=== PATIENT | female | born 1950 | race Caucasian/White ===

== ENCOUNTER 2022-03-25 08:46 | Outpatient (REF) | payer MEDICARE, SELFPAY ==
[2022-03-25 11:03] LABS: MANUAL DIFF FLAG NO
[2022-03-25 11:08] LABS: Basophils Percent Auto 0.6 % (0-2); Eosinophils Absolute Auto 0.1 X10*3/uL (0.0-0.4); Eosinophils Percent Auto 1.9 % (0-4); Hematocrit 42.1 % (37.0-47.0); Imm Gran Abs Auto 0.01 X10*3/uL (0.00-0.03); Imm Gran Pct Auto 0.2 % (0.0-0.4); Lymphocytes Absolute Auto 2.3 X10*3/uL (1.2-4.9); Lymphocytes Percent Auto 36.6 % (20-40); Mean Corpuscular HGB Conc 33.3 g/dl (31.0-35.0); Mean Corpuscular Hemoglobin 29.5 pg (27.0-33.0); Mean Corpuscular Volume 88.8 fL (80.0-98.0); Mean Platelet Volume 9.9 fL (9.4-12.3); Monocytes Absolute Auto 0.6 X10*3/uL (0.1-1.2); Monocytes Percent Auto 9.7 % (2-11); Neutrophils Absolute Auto 3.3 x10*3/uL (2.0-8.3); Platelet Count 263 X10*3/uL (160-400); Red Blood Count 4.74 X10*6/uL (4.20-5.50); White Blood Count 6.4 X10*3/uL (4.8-10.8)
[2022-03-25 11:42] LABS: Alanine Aminotransferase 11 U/L (0-31); Albumin Level 4.4 g/dL (3.5-5.0); Alkaline Phosphatase 66 U/L (39-117); Anion Gap 15 (12-20); Aspartate Amino Transferase 14 U/L (5-31); Bilirubin Total 0.6 mg/dL (0.0-1.0); Blood Urea Nitrogen 13 mg/dL (9-16); Calcium 9.3 mg/dL (8.4-10.2); Carbon Dioxide 29 mmol/L (22-29); Chloride 106 mmol/L (96-108); Cholesterol 221 mg/dL; Estimated Glomerular Filt Rate > 60; Glucose Random 96 mg/dL (60-115); HDL Cholesterol 75 mg/dL; LDL Cholesterol Calculated 131 mg/dl; Potassium 5.6 mmol/L (3.3-5.1); Sodium 144 mmol/L (135-145); Total Protein 7.2 g/dL (6.5-8.0); Triglycerides 77 mg/dL
[2022-03-25 12:04] LABS: Vitamin D 25-OH Total 36.4 ng/mL (>30)
== END 2022-03-25 08:47 | disposition home or self-care (01) ==
LOC: HO.MANLDS 08:46
PROVIDERS: Visit Provider Internal Medicine
DX: E78.00 Pure hypercholesterolemia, unspecified (principal)
CPT/HCPCS: 36415; 80053; 80061; 82306; 85025

== ENCOUNTER 2023-04-27 08:27 | Outpatient (REF) | payer MEDICARE, SELFPAY ==
[2023-04-27 13:15] LABS: MANUAL DIFF FLAG NO
[2023-04-27 13:41] LABS: Basophils Absolute Auto 0.1 X10*3/uL (0.0-0.2); Basophils Percent Auto 1.1 % (0-2); Eosinophils Absolute Auto 0.2 X10*3/uL (0.0-0.4); Eosinophils Percent Auto 2.4 % (0-4); Hematocrit 43.7 % (37.0-47.0); Hemoglobin 14.3 g/dl (12.0-16.0); Imm Gran Abs Auto 0.02 X10*3/uL (0.00-0.03); Imm Gran Pct Auto 0.3 % (0.0-0.4); Lymphocytes Absolute Auto 2.4 X10*3/uL (1.2-4.9); Lymphocytes Percent Auto 38.1 % (20-40); Mean Corpuscular HGB Conc 32.7 g/dl (31.0-35.0); Mean Corpuscular Volume 88.6 fL (80.0-98.0); Mean Platelet Volume 10.2 fL (9.4-12.3); Monocytes Absolute Auto 0.7 X10*3/uL (0.1-1.2); Monocytes Percent Auto 10.4 % (2-11); Neutrophils Percent Auto 47.7 % (45-73); Platelet Count 254 X10*3/uL (160-400); Red Blood Count 4.93 X10*6/uL (4.20-5.50); Red Cell Distribution Width 12.2 % (11.0-16.0); White Blood Count 6.3 X10*3/uL (4.8-10.8)
[2023-04-27 14:17] LABS: Alanine Aminotransferase 13 U/L (0-31); Albumin Level 4.3 g/dL (3.5-5.0); Alkaline Phosphatase 65 U/L (39-117); Anion Gap 13 (12-20); Aspartate Amino Transferase 16 U/L (5-31); Bilirubin Total 0.8 mg/dL (0.0-1.0); Blood Urea Nitrogen 11 mg/dL (9-16); Calcium 9.7 mg/dL (8.4-10.2); Carbon Dioxide 28 mmol/L (22-29); Chloride 105 mmol/L (96-108); Cholesterol 209 mg/dL (<200); Estimated Glomerular Filt Rate > 60; Glucose Random 91 mg/dL (60-115); HDL Cholesterol 66 mg/dL (>40); LDL Cholesterol Calculated 124 mg/dL (<100); Potassium 4.9 mmol/L (3.3-5.1); Sodium 141 mmol/L (135-145); Total Protein 7.5 g/dL (6.5-8.0); Triglycerides 99 mg/dL (<150)
[2023-04-27 14:37] LABS: Vitamin D 25-OH Total 47.2 ng/mL (>30)
== END 2023-04-27 08:28 | disposition home or self-care (01) ==
LOC: HO.MANLDS 08:27
PROVIDERS: Visit Provider Internal Medicine
DX: E78.00 Pure hypercholesterolemia, unspecified (principal)
CPT/HCPCS: 36415; 80053; 80061; 82306; 85025

== ENCOUNTER 2024-05-30 08:24 | Outpatient (REF) | payer MEDICARE, SELFPAY ==
[2024-05-30 13:11] LABS: MANUAL DIFF FLAG NO
[2024-05-30 13:37] LABS: Basophils Absolute Auto 0.1 X10*3/uL (0.0-0.2); Eosinophils Absolute Auto 0.1 X10*3/uL (0.0-0.4); Eosinophils Percent Auto 2.1 % (0-4); Hemoglobin 13.2 g/dl (12.0-16.0); Imm Gran Abs Auto 0.01 X10*3/uL (0.00-0.03); Imm Gran Pct Auto 0.2 % (0.0-0.4); Lymphocytes Absolute Auto 2.1 X10*3/uL (1.2-4.9); Lymphocytes Percent Auto 39.7 % (20-40); Mean Corpuscular HGB Conc 33.8 g/dl (31.0-35.0); Mean Corpuscular Hemoglobin 29.9 pg (27.0-33.0); Mean Corpuscular Volume 88.4 fL (80.0-98.0); Mean Platelet Volume 9.9 fL (9.4-12.3); Monocytes Absolute Auto 0.5 X10*3/uL (0.1-1.2); Monocytes Percent Auto 9.8 % (2-11); Neutrophils Absolute Auto 2.5 x10*3/uL (2.0-8.3); Neutrophils Percent Auto 47.2 % (45-73); Platelet Count 253 X10*3/uL (160-400); Red Blood Count 4.41 X10*6/uL (4.20-5.50); Red Cell Distribution Width 11.9 % (11.0-16.0); White Blood Count 5.2 X10*3/uL (4.8-10.8)
[2024-05-30 19:35] LABS: Alanine Aminotransferase 25 U/L (0-31); Albumin Level 4.2 g/dL (3.5-5.0); Alkaline Phosphatase 64 U/L (39-117); Anion Gap 11 (12-20); Aspartate Amino Transferase 31 U/L (5-31); Bilirubin Total 0.8 mg/dL (0.0-1.0); Blood Urea Nitrogen 12 mg/dL (9-16); Calcium 9.6 mg/dL (8.4-10.2); Carbon Dioxide 27 mmol/L (22-29); Chloride 108 mmol/L (96-108); Cholesterol 196 mg/dL (<200); Estimated Glomerular Filt Rate > 60; Glucose Random 89 mg/dL (60-115); HDL Cholesterol 72 mg/dL (>40); LDL Cholesterol Calculated 111 mg/dL (<100); Potassium 3.9 mmol/L (3.3-5.1); Sodium 142 mmol/L (135-145); Triglycerides 69 mg/dL (<150)
[2024-05-30 19:52] LABS: Vitamin D 25-OH Total 37.2 ng/mL (>30)
== END 2024-05-30 08:25 | disposition home or self-care (01) ==
LOC: HO.MANLDS 08:24
PROVIDERS: Visit Provider Internal Medicine
DX: I10 Essential (primary) hypertension (principal)
CPT/HCPCS: 36415; 80053; 80061; 82306; 85025

== ENCOUNTER 2025-04-27 08:46 | Outpatient (REF) | payer MEDICARE, SELFPAY ==
--- OUTSIDE RECORDS SUMMARY | 2025-04-27 09:27 | XMS_ITS | Encounter Summary ---
Author Organization [facility] Address [address] [place] [address] Phone Care Team Providers Care Paper Sorter And Counter Name Role Phone Kolton Hernandez DO Primary Care Provider [phone] Encounter Details Date Type Department Care Team (Late st Contact Info) Description 05/31/2019 Ancillary Orders [facility] Department [address] [place] [address] Kolton Hernandez DO [address] [place] [address] [email or web address] Encounter for screening for osteoporosis Social History Tobacco Use Types Packs/Day Years Used Date Smoking Tobacco: Never Assessed Comments No Sex and Gender Information Value Date Recorded Sex Assigned at Female 05/01/2022 8:24 PM EDT Legal Sex Female 10:03 PM EDT Gender Identity Female 05/01/2022 8:24 PM EDT Sexual Orientation Asexual 05/01/2022 8: 24 PM EDT documented as of this encounter Plan of Treatment Upcoming Encounters Date Type Department Care Team (Late st Contact Info) Description 04/03/2025 Procedure Pass [address] [address] 11/30/2025 8:45 AM EDT Appointment [address] [address] Kolton Hernandez DO [address] [place] [address] 11/30/2025 9:30 AM EDT Appointment [facility], [facility] [address] [place] [address] Kolton Hernandez DO [address] [place] [address] documented as of this encounter Visit Diagnoses Diagnosis Encounter for screening for osteoporosis documented in this encounter Care Teams Paper Sorter And Counter Relationship Specialty Start Date End Date Kolton Hernandez DO PCP - General Internal Medicine 08/01/18 documented as of this encounter Additional Source Comments The information contained in this document represents components of the legal health record. It is not the complete legal health record.[facility]
--- OUTSIDE RECORDS SUMMARY | 2025-04-27 09:27 | XMS_ITS | Encounter Summary ---
Author Organization [facility] Address [address] [place] [address] Phone Care Team Providers Care Pickling Tank Operator Name Role Phone Kolton Hernandez DO Primary Care Provider [phone] Encounter Details Date Type Department Care Team (Late st Contact Info) Description 10/04/2018 Ancillary Orders [facility] Department [address] [place] [address] Kolton Hernandez DO [address] [place] [address] [email or web address] Screening for osteoporosis; Osteopenia, unspecified location Social History Tobacco Use Types Packs/Day Years Used Date Smoking Tobacco: Never Assessed Comments Unknown Sex and Gender Information Value Date Recorded Sex Assigned at Female 05/01/2022 8:24 PM EDT Legal Sex Female 10:03 PM EDT Gender Identity Female 05/01/2022 8:24 PM EDT Sexual Orientation Asexual 05/01/2022 8: 24 PM EDT documented as of this encounter Plan of Treatment Upcoming Encounters Date Type Department Care Team (Late st Contact Info) Description 04/03/2025 Procedure Pass [facility], Mammography- [address] [address] 11/30/2025 8:45 AM EDT Appointment [facility], Bone Density - [address] [address] Kolton Hernandez DO [address] [place], [place] [id number] [email or web address] 11/30/2025 9:30 AM EDT Appointment [facility], [facility] [address] [place] [address] Kolton Hernandez, DO 179 [facility] [place] [address] [email or web address] documented as of this encounter Results * BD DXA AXIAL (SPINE) WITH HIP (10/05/2018 10:45 AM EST) Anatomical Region Laterality Modality Bone Density Bone Density 10/05/2018 12:1 7 PM EST Impressions 10/05/2018 2:10 PM EST Osteopenia in all sites assessed. In the proximal left femur, this nears the osteoporosis designation. There is a significant decrease in density there since 2008 but no significant change elsewhere. POS -[id number] Edited by: Bobbi Wallis on 10/05/2018 12:55 PM Narrative 10/05/2018 2:10 PM EST This is a 68-year-old postmenopausal white female with no perceived height loss, not on hormone replacement therapy. Comparison is made to prior study of 03/22/2009. Evaluation of the lumbar spine and hips was performed and appears to be technically adequate. Total bone mineral density in the L1-L4 vertebral bodies was calculated at 0.819 gm/cm2 with a T score of -2.1. This falls within the WHO classification of osteopenia. Patient's Z score is 0.0. There is no significant change since prior study. Total bone mineral density in the right proximal femur was calculated at 0.691 gm/cm2 with a T-score of -2.1 falling within the WHO classification of osteopenia. Total bone mineral density in the left proximal femur was calculated at 0.647 gm/cm2 with a T-score of -2.4 falling within the WHO classification of osteopenia. Patient's Z score on the right is -0.6 on the left -1.0. Since prior study there is no significant change on the right, but a decrease on the left of 4.9% is statistically significant at the 95% confidence interval. Procedure Note Teresa Giles MD - 10/05/2018 This is a 68-year-old postmenopausal white female with no perceived heightloss, not on hormone replacement therapy. Comparison is made to priorstudy of 03/22/2009. Evaluation of the lumbar spine and hips was performed and appears to betechnically adequate. Total bone mineral density in the L1-L4 vertebral bodies was calculated at0.819 gm/cm2 with a T score of -2.1. This falls within the WHOclassification of osteopenia. Patient's Z score is 0.0. There is nosignificant change since prior study. Total bone mineral density in the right proximal femur was calculated at0.691 gm/cm2 with a T-score of -2.1 falling within the WHO classificationof osteopenia. Total bone mineral density in the left proximal femur wascalculated at 0.647 gm/cm2 with a T-score of -2.4 falling within the WHOclassification of osteopenia. Patient's Z score on the right is -0.6 onthe left -1.0. Since prior study there is no significant change on theright, but a decrease on the left of 4.9% is statistically significant atthe 95% confidence interval. IMPRESSION: Osteopenia in all sites assessed. In the proximal left femur, this nearsthe osteoporosis designation. There is a significant decrease in densitythere since 2008 but no significant change elsewhere. POS -[id number] Edited by: Bobbi Wallis on 10/05/2018 12:55 PM Kolton Hernandez DO IMG BD BONE DENSITY DEXA Final R esult documented in this encounter Visit Diagnoses Diagnosis Screening for osteoporosis Special screening for osteoporosis Osteopenia, unspecified location Screening for osteoporosis Special screening for osteoporosis Osteopenia, unspecified location documented in this encounter Care Teams Pickling Tank Operator Relationship Specialty Start Date End Date Kolton Hernandez DO [email or web address] PCP - General Internal Medicine 08/01/18 documented as of this encounter Additional Source Comments The information contained in this document represents components of the legal health record. It is not the complete legal health record.[facility]
--- OUTSIDE RECORDS SUMMARY | 2025-04-27 09:27 | XMS_ITS | Encounter Summary ---
Author Organization [facility] Address [address] [place] [address] Phone Care Team Providers Care Print Cutter Name Role Phone Kolton Hernandez DO Primary Care Provider [phone] Encounter Details Date Type Department Care Team (Late st Contact Info) Description 07/27/2018 Ancillary Orders [facility] Department [address] [place] [address] Kolton Hernandez DO [address] [place] [address] [email or web address] Breast screening; Screening for osteoporosis Social History Tobacco Use Types [...] st Contact Info) Description 04/03/2025 Procedure Pass [facility], Mamm[address] [address] 11/30/2025 8:45 AM EDT Appointment [facility], Bone Density [address] [address] Kolton Hernandez DO [address] [place] [address] [email or web address] 11/30/2025 9:30 AM EDT Appointment [facility], [facility] [address] [place] [address] Kolton Hernandez, 179 [facility] [place] [address] [email or web address] documented as of this encounter Results * (ABNORMAL) BI MAMMOGRAM SCREENING WITH TOMOSYNTHESIS WITH CAD (BILATERAL) (10/05/2018 11:07 AM EST) Anatomical Region Laterality Modality Breast Left, Breast Right, Breast Bilateral Bila teral Mammography 10/05/2018 1:35 PM EST Impressions 10/05/2018 2:10 PM EST Magnification views recommended on the left for calcification. Routine screening recommended on the right where no interval change is identified. Callback views: CC and true lateral magnification views left breast. BI-RADS CATEGORY: 0 - Incomplete. Need additional imaging evaluation. DENSITY: There are scattered fibroglandular densities. LEFT RECOMMENDATION DUE DATE: 1 Month Additional Imaging RIGHT RECOMMENDATION DUE DATE: 12 Months Mammography Screening POS -[id number] Edited by: Bobbi Wallis on 10/05/2018 1:45 PM Narrative 10/05/2018 2:10 PM EST Bilateral full-field digital screening mammography is obtained and read in conjunction with computer-aided detection. Tomosynthesis as well as 2-D C-view imaging of both breasts in two planes also obtained. Comparison made to multiple prior, most recent December 20, 2014, and most remote April 18, 2009. No dominant mass, architectural distortion, worrisome asymmetry, or suspicious calcification is identified. No skin or nipple finding of concern is appreciated. There are a few calcifications posteriorly at the upper outer left breast which may be in part artifactual. Additional imaging recommended in further assessment, however. Procedure Note Teresa Giles MD - 10/05/2018 Bilateral full-field digital screening mammography is obtained and read inconjunction with computer-aided detection. Tomosynthesis as well as 2-DC-view imaging of both breasts in two planes also obtained. Comparisonmade to multiple prior, most recent December 20, 2014, and most remoteSept2008. No dominant mass, architectural distortion, worrisome asymmetry, orsuspicious calcification is identified. No skin or nipple finding ofconcern is appreciated. There are a few calcifications posteriorly at theupper outer left breast which may be in part artifactual. Additionalimaging recommended in further assessment, however. IMPRESSION: Magnification views recommended on the left for calcification. Routinescreening recommended on the right where no interval change isidentified. Callback views: CC and true lateral magnification views left breast. BI-RADS CATEGORY: 0 - Incomplete. Need additional imaging evaluation. DENSITY: There are scattered fibroglandular densities. LEFT RECOMMENDATION DUE DATE: 1 Month Additional Imaging RIGHT RECOMMENDATION DUE DATE: 12 Months Mammography Screening POS -[id number] Edited by: Bobbi Wallis on 10/05/2018 1:45 PM Kolton Hernandez DO IMG MG EXAMS Final Result documented in this encounter Visit Diagnoses Diagnosis Breast screening Breast screening, unspecified Screening for osteoporosis Special screening for osteoporosis Breast screening Breast screening, unspecified documented in this encounter Care Teams Print Cutter Relationship Specialty Start Date End Date Kolton Hernandez DO [email or web address] PCP - General Internal Medicine 08/01/18 documented as of this encounter Additional Source Comments The information contained in this document represents components of the legal health record. It is not the complete legal health record.[facility]
--- OUTSIDE RECORDS SUMMARY | 2025-04-27 09:27 | XMS_ITS | Encounter Summary ---
Author Organization [facility] Address [address] [place] [address] Phone Care Team Providers Care Billiard Table Assembler Name Role Phone Kolton Hernandez DO Primary Care Provider [phone] Encounter Details Date Type Department Care Team ([facility] st Contact Info) Description 04/03/2025 Transcribe Orders Virtual Department [address] [place] [address] Kolton Hernandez DO [address] [facility] [place] [address] [email or web address] Encounter for screening for osteoporosis (Primary Dx); Breast screening Social History Tobacco Use Types Packs/Day Years Used Date Smoking Tobacco: Never Smokeless Tobacco: Never Alcohol Use Standard Drinks/Week Comments Yes 0 (1 standard drink = 0.6 oz pur e alcohol) Education Answer Date Recorded Are you interested in more education? Not on fox e 12/04/2022 Are you concerned about learning? Not on file 12/04/2022 No 12/04/2022 No 12/04/2022 Digital Access Answer Date Recorded No 01/02/2023 No 01/02/2023 Reliable internet access at home? Not on file 01/02/2023 Device with a working camera? Not on file Intimate Partner Violence Answer Date R ecorded Are you denied basic needs s uch as food, clothing, or medical care? No 03/20/2023 In the past 12 months have y ou been in a relationship with a person who hurts, threatens, or tries to control you? No 03/20/2023 Are you denied basic needs s uch as food, clothing, or medical care? No 03/20/2023 In the past 12 months have y ou been in a relationship with a person who hurts, threatens, or tries to control you? No 03/20/2023 Comments No Sex and Gender Information Value Date Recorded Sex Assigned at Female 05/01/2022 8:24 PM EDT Legal Sex Female 10:03 PM EDT Gender Identity Female 05/01/2022 8:24 PM EDT Sexual Orientation Asexual 05/01/2022 8: 24 PM EDT documented as of this encounter Plan of Treatment Upcoming Encounters Date Type Department Care Team (Late st Contact Info) Description 04/03/2025 Procedure Pass [address] [address] 11/30/2025 8:45 AM EDT Appointment [facility] Bone Density [address] [address] Kolton Hernandez, DO [address] [place] [address] 11/30/2025 9:30 AM EDT Appointment [address] [address] Kotlon Hernandez, DO [address] [place] [address] Scheduled Orders Name Type Priority Associated Diagnoses Orde r Schedule DXA Screening Imaging Routine Encounter for screening for osteoporosis Expected: 05/03/2025, Expires: 04/03/2026 Mammogram Screening (Bilateral) Imaging Routine Breast screening Expected: 05/04/2025, Expires: 04/03/2026 documented as of this encounter Visit Diagnoses Diagnosis Encounter for screening for osteoporosis- Primary Breast screening Breast screening, unspecified documented in this encounter Care Teams Billiard Table Assembler Relationship Specialty Start Date End Date Kolton Hernandez DO PCP - General Internal Medicine 08/01/18 documented as of this encounter Additional Source Comments The information contained in this document represents components of the legal health record. It is not the complete legal health record.[facility]
--- OUTSIDE RECORDS SUMMARY | 2025-04-27 09:27 | XMS_ITS | Clinical Summary ---
Author Organization [facility] Address [address] [place] [address] Phone Care Team Providers Care Him Specialists Name Role Phone Kolton Hernandez DO Primary Care Provider [phone] Allergies Active Allergy Reactions Criticality Noted Date Comments Lisinopril 03/20/2023 Medications atorvastatin (LIPITOR) 10 MG tablet 05/02/2022 Active aspirin 81 MG EC tablet daily. Active amLODIPine (NORVASC) 5 MG tablet 05/02/2022 Active cholecalciferol, vitamin D3, 25 mcg (1,000 unit) capsule Vitamin D3 Active Active Problems No known active problems Encounters Date Type Department Care Team Description 04/03/2025 Transcribe Orders Virtual Department [address] [place] [address] Kolton Hernandez DO Encounter for screening for osteoporosis (Primary Dx); Breast screening from Last 3 Months Social History Tobacco Use Types Packs/Day Years [...] Orientation Asexual 05/01/2022 8: 24 PM EDT Last Filed Vital Signs Vital Sign Reading Time Taken Comments Blood Pressure 154/88 03/20/2023 11:42 PM EDT Pulse 71 03/20/2023 11:42 PM EDT Temperature 37 C (98.6 F) 03/20/2023 11:42 PM EDT Respiratory Rate 17 03/20/2023 11:42 PM EDT Oxygen Saturation 97% 03/20/2023 11:42 PM EDT Inhaled Oxygen Concentration - - Weight 59.9 kg (132 lb) 05/04/2022 12:03 PM EDT Height 157.5 cm (5' 2 ) 05/04/2022 12:03 PM EDT Body Mass Index 24.14 05/04/2022 12:03 PM EDT Plan of Treatment Upcoming Encounters Date Type Department Care Team (Late st Contact Info) Description 04/03/2025 Procedure Pass [address] [address] 11/30/2025 8:45 AM EDT Appointment [facility] Bone Density [address] [address] Kolton Hernandez, DO 179 [facility] [address] 11/30/2025 9:30 AM EDT Appointment [address] [place] [address] Kolton Hernandez, DO [address] [facility] [address] [place] [address] Health Maintenance Due Date Last Done Comments Adult Td,Tdap Booster 1949 LIPID PANEL 1949 DEPRESSION SCREENING 1961 HEPATITIS C SCREENING 1967 COLOGUARD 1994 COLONOSCOPY 1994 COLORECTAL CANCER SCREENING 1994 FIT TEST 1994 FOBT 1994 SIGMOIDOSCOPY 1994 VIRTUAL COLONOSCOPY 1994 ZOSTER VACCINES (2 of 3) 04/24/2019 02/27/2019, 12/07 RSV VACCINE (1 - 1-dose 75+ series) 2024 INFLUENZA VACCINE (#1) 2025 9, 05/11/2018, 05/25/2016, Additional history exists COVID-19 VACCINE (3 - 2024- season) 2025 10/30/2020, 10/02/2020 PNEUMOCOCCAL VACCINES (50+ years) Completed 05/11/2018, 06/10/2015, 05/28/2009 OSTEOPOROSIS SCREENING INITIAL (ONE-TIME) Completed 12/23/2020, 10/05/2018 SMOKING STATUS SCREENING (Once After 26 Yrs) Completed 03/20/2023 HEPATITIS A VACCINES Aged Out No long er eligible based on patient's age to complete this topic HIB VACCINES Aged Out No longer eligi ble based on patient's age to complete this topic MENINGOCOCCAL VACCINES (ACWY) Aged Out No longer eligible based on patient's age to complete this topic MENINGOCOCCAL VACCINES (B) Aged Out N o longer eligible based on patient's age to complete this topic Medical Devices Not on file Procedures Procedure Name Priority Date/Time Associated Diagnosis Comments BD DXA AXIAL (SPINE) WITH HIP Routine 12/23/2020 9:00 AM EDT Other specified disorders of bone density and structure, unspecified site Osteopenia, unspecified location from Last 3 Months or Most Recently Relevant to Health Maintenance Results * BD DXA AXIAL (SPINE) WITH HIP (12/23/2020 9:00 AM EDT) Anatomical Region Laterality Modality Bone Density Bone Density 12/23/2020 9:26 AM EDT Impressions 12/23/2020 9:28 AM EDT Lumbar spine and bilateral hip osteopenia with minimal increase in hip bone density since 2019. Narrative 12/23/2020 9:28 AM EDT COMPARISON: 10/05/2018. BONE DENSITY FINDINGS: History: This is a 70-year-old postmenopausal female. Evaluation of the lumbar spine and hips was performed and felt to be technically adequate. Total bone mineral density in the L1-L4 vertebral bodies was calculated at 0.838 gm/cm2 with a T-score of -1.9 falling within the WHO classification of osteopenia. Z-score of 0.3.Fracture risk increased. Total bone mineral density in the right hip was calculated at 0.729 gm/cm2 with a T-score of -1.7 falling within the WHO classification of osteopenia. Z-score of -0.2. 5.5% increase in bone density which is statistically significant. Total bone mineral density in the left hip was calculated at 0.681 gm/cm2 with a T-score of -2.1 falling within the WHO classification of osteopenia. Z-score of -0.6. 5.3% increase in bone density which is statistically significant. Procedure Note Martin Marino MD - 12/23/2020 COMPARISON: 10/05/2018. BONE DENSITY FINDINGS: History: This is a 70-year-old postmenopausal female. Evaluation of the lumbar spine and hips was performed and felt to betechnically adequate. Total bone mineral density in the L1-L4 vertebral bodies was calculated at0.838 gm/cm2 with a T-score of -1.9 falling within the WHO classificationof osteopenia. Z-score of 0.3.Fracture risk increased. Total bone mineral density in the right hip was calculated at 0.729 gm/dv5dpph a T-score of -1.7 falling within the WHO classification ofosteopenia. Z-score of - 0.2. 5.5% increase in bone density which isstatistically significant. Total bone mineral density in the left hip was calculated at 0.681 gm/zl9sxev a T-score of -2.1 falling within the WHO classification ofosteopenia. Z-score of -0.6. 5.3% increase in bone density which isstatistically significant. IMPRESSION: Lumbar spine and bilateral hip osteopenia with minimal increase in hipbone density since 2019. us Kolton Monika Bigda DO IMG BD BONE DENSITY DEXA Final R esult from Last 3 Months or Most Recently Relevant to Health Maintenance Insurance [employer] SUPPLEMENT MEDICARE PART A & B [employer] SUPPLE[employer] MEDICARE PART A & B [employer] [place]PP[place]ICARE PART A & [place] [id number] [employer] CROSS MEDEX SUPPLEMENT MEDICARE PART A & B [employer] CROSS MEDEX SUPPLEMENT MEDICARE PART A & B Member Subscriber Plan / Payer (Ef fective 2016-Present) Name:Yuli Luong Member ID:[id number] Relation to Subscriber:Self Name:Yuli Luong Subscriber ID:[id number] Payer ID:[id number] Group ID:Not on file Type:Medicare Address: [employer] [address] [employer] MEDEX SUPPLEMENT MEDICARE PART A & B [employer] MED[employer] SUPPLEMENT MEDICARE PART A & B [employer] CROSS MEDEX SUPPLEMENT [employer] [place]: [place] [address] MEDICARE PART A & B [employer] CROSS MEDEX SUPPLEMENT MEDICARE PART A & B Care Teams Him Specialists Relationship Specialty Start Date End Date Kolton Hernandez DO [email or web address] PCP - General Internal Medicine 08/01/18 Additional Source Comments The information contained in this document represents components of the legal health record. It is not the complete legal health record.[facility]
--- OUTSIDE RECORDS SUMMARY | 2025-04-27 09:27 | XMS_ITS | Encounter Summary ---
Author Organization [facility] Address [address] [place] [address] Phone Care Team Providers Care Repairer Pump Name Role Phone Kolton Hernandez DO Primary Care Provider Encounter Details Date Type Department Care Team (Late st Contact Info) Description 03/06/2022 Procedure Pass [address] [address] Social History Tobacco Use Types Packs/Day Years [...] st Contact Info) Description 04/03/2025 Procedure Pass [address] [address] 11/30/2025 8:45 AM EDT Appointment [address] [address] Kolton Hernandez, DO [address] [place] [address] 11/30/2025 9:30 AM EDT Appointment [address] [address] Kolton Hernandez DO [address] [place] [address] documented as of this encounter Visit Diagnoses Not on filedocumented in this encounter Care Teams Repairer Pump Relationship Specialty Start Date End Date Kolton Hernandez DO PCP - General Internal Medicine 08/01/18 documented as of this encounter Additional Source Comments The information contained in this document represents components of the legal health record. It is not the complete legal health record.[facility]
--- OUTSIDE RECORDS SUMMARY | 2025-04-27 09:27 | XMS_ITS | Encounter Summary ---
Author Organization [facility] Address [address] [place] [address] Phone Care Team Providers Care Corporate Law Assistant Name Role Phone Kolton Hernandez DO Primary Care Provider [phone] Encounter Details Date Type Department Care Team (Late st Contact Info) Description 03/06/2022 Transcribe Orders Virtual Department [address] [place] [address] Kolton Hernandez DO [address] [place] [address] [email or web address] Encounter for screening mammogram for malignant neoplasm of breast (Primary Dx) Social History Tobacco Use Types Packs/Day Years [...] st Contact Info) Description 04/03/2025 Procedure Pass [facility], Mammography- [address] [address] 11/30/2025 8:45 AM EDT Appointment [facility], Bone Density - [address] [address] Kolton Hernandez DO [address] [place], [place] [id number] [email or web address] 11/30/2025 9:30 AM EDT Appointment [facility], [facility] [address] [place] [address] Kolton Hernandez, [address] [facility] [place] [address] documented as of this encounter Results * BI MAMMOGRAM SCREENING WITH TOMOSYNTHESIS WITH CAD (BILATERAL) (03/26/2022 10:41 AM EDT) Anatomical Region Laterality Modality Breast Left, Breast Right, Breast Bilateral Bila teral Mammography 03/26/2022 10:4 2 AM EDT Impressions 03/26/2022 11:37 AM EDT No mammographic evidence of malignancy. Recommend routine annual surveillance. BI-RADS CATEGORY: 1 - Negative. DENSITY: The breast tissue is heterogeneously dense, which could obscure a lesion on mammography. Narrative 03/26/2022 11:37 AM EDT 71-year-old female. Comparison made to previous on 10/05/2018 and as far back as 03/27/2004. Interpretation made in conjunction with computer-aided detection and tomosynthesis. The breasts are heterogeneously dense, which may obscure small masses. There are no suspicious masses, areas of architectural distortion, or suspicious clusters of microcalcifications. Procedure Note Martin Marino MD - 03/26/2022 71-year-old female. Comparison made to previous on 10/05/2018 and as farback as 03/27/2004. Interpretation made in conjunction with computer-aideddetection and tomosynthesis. The breasts are heterogeneously dense, which may obscure small masses. There are no suspicious masses, areas of architectural distortion, orsuspicious clusters of microcalcifications. IMPRESSION: No mammographic evidence of malignancy. Recommend routine annualsurveillance. BI-RADS CATEGORY: 1 - Negative. DENSITY: The breast tissue is heterogeneously dense, which could obscurea lesion on mammography. Kolton Hernandez DO IMG MG EXAMS Final Result documented in this encounter Visit Diagnoses Diagnosis Encounter for screening mammogram for malignant neoplasm of breast- Primary Encounter for screening mammogram for malignant neoplasm of breast documented in this encounter Care Teams Corporate Law Assistant Relationship Specialty Start Date End Date Kolton Hernandez DO PCP - General Internal Medicine 08/01/18 documented as of this encounter Additional Source Comments The information contained in this document represents components of the legal health record. It is not the complete legal health record.[facility]
--- OUTSIDE RECORDS SUMMARY | 2025-04-27 09:27 | XMS_ITS | Encounter Summary ---
Author Organization [facility] Address [address] [place] [address] Phone Care Team Providers Care Guest Services Officer Name Role Phone Kolton Hernandez DO Primary Care Provider Encounter Details Date Type Department Care Team (Late st Contact Info) Description 10/06/2018 Ancillary Orders [facility] Department [address] [place] [address] Kolton Hernandez DO [address] [place] [address] [email or web address] Abnormal mammogram Social History Tobacco Use Types Packs/Day Years [...] st Contact Info) Description 04/03/2025 Procedure Pass [facility], Mamm[address] [address] 11/30/2025 8:45 AM EDT Appointment [facility], Bone Density - [address] [address] Kolton Hernandez DO [address] [place], [place] [phone] 11/30/2025 9:30 AM EDT Appointment [facility], Mammography- [facility] [address] [place] [address] Kolton Hernandez DO [address] [facility] [place] [address] [place] [address] [email or web address] documented as of this encounter Results * BI MAMMOGRAM DIAGNOSTIC NO TOMOSYNTHESIS NO CAD (LEFT) (10/10/2018 9:16 AM EST) Anatomical Region Laterality Modality Breast Left Left Mammography 10/10/2018 9:17 AM EST Impressions 10/10/2018 9:22 AM EST Microcalcifications demonstrated on 10/05/2018 are not duplicated currently and are suspected to have been artifactual. In the absence of clinically significant findings bilateral screening mammography in 12 months time would be recommended for surveillance. The results of this examination were relayed to the patient by the technologist. BI-RADS CATEGORY: 1 - Negative. DENSITY: There are scattered fibroglandular densities. LEFT RECOMMENDATION DUE DATE: Annual Mammography Screening POS - [id number] Narrative 10/10/2018 9:22 AM EST Magnification spot compression and mediolateral images of the regions of microcalcifications demonstrated on the study of 10/05/2018 were obtained. These do not reveal the presence of suspicious microcalcifications or architectural distortion. Kolton Hernandez DO IMG MG EXAMS Final Result documented in this encounter Visit Diagnoses Diagnosis Abnormal mammogram Abnormal mammogram, unspecified Abnormal mammogram Abnormal mammogram, unspecified documented in this encounter Care Teams Guest Services Officer Relationship Specialty Start Date End Date Kolton Hernandez DO PCP - General Internal Medicine 08/01/18 documented as of this encounter Additional Source Comments The information contained in this document represents components of the legal health record. It is not the complete legal health record.[facility]
--- OUTSIDE RECORDS SUMMARY | 2025-04-27 09:27 | XMS_ITS | Encounter Summary ---
Author Organization [facility] Address [address] [place] [address] Phone Care Team Providers Care General Surgery Physician Assistant Name Role Phone Kolton Hernandez DO Primary Care Provider [phone] Encounter Details Date Type Department Care Team (Late st Contact Info) Description 08/20/2020 Ancillary Orders [facility] Department [address] [place] [phone] Kolton Hernandez DO [address] [place] [address] [email or web address] Other specified disorders of bone density and structure, unspecified site; Osteopenia, unspecified location Social History Tobacco Use [...] st Contact Info) Description 04/03/2025 Procedure Pass [facility], [address] [address] 11/30/2025 8:45 AM EDT Appointment [address] [address] Kolton Hernandez DO [address] [place], [place] [phone] [email or web address] 11/30/2025 9:30 AM EDT Appointment [facility] [address] [place] [address] ShaunljKolton DO [address] [facility] [place] [address] [place] [address] [email or web address] documented as of this encounter Results * [...] the right hip was calculated at 0.729 gm/cf1ttyv a T-score of -1.7 falling within the WHO classification ofosteopenia. Z-score of - 0.2. 5.5% increase in bone density which isstatistically significant. Total bone mineral density in the left hip was calculated at 0.681 gm/fa0hgpm a T-score of -2.1 falling within the WHO classification ofosteopenia. Z-score of - 0.6. 5.3% increase in bone density which isstatistically significant. IMPRESSION: Lumbar spine and bilateral hip osteopenia with minimal increase in hipbone density since 2019. Kolton Hernandez DO IMG BD BONE DENSITY DEXA Final R esult documented in this encounter Visit Diagnoses Diagnosis Other specified disorders of bone density and structure, unspecified site Osteopenia, unspecified location Other specified disorders of bone density and structure, unspecified site Osteopenia, unspecified location documented in this encounter Care Teams General Surgery Physician Assistant Relationship Specialty Start Date End Date Kolton Hernandez DO [email or web address] PCP - General Internal Medicine 08/01/18 documented as of this encounter Additional Source Comments The information contained in this document represents components of the legal health record. It is not the complete legal health record.[facility]
[2025-04-27 13:29] LABS: MANUAL DIFF FLAG NO
[2025-04-27 13:46] LABS: Hematocrit 38.5 % (37.0-47.0); Hemoglobin 13.3 g/dl (12.0-16.0); Imm Gran Abs Auto 0.01 X10*3/uL (0.00-0.03); Imm Gran Pct Auto 0.2 % (0.0-0.4); Lymphocytes Absolute Auto 2.1 X10*3/uL (1.2-4.9); Mean Corpuscular HGB Conc 34.5 g/dl (31.0-35.0); Mean Corpuscular Hemoglobin 30.0 pg (27.0-33.0); Mean Corpuscular Volume 86.7 fL (80.0-98.0); NRBC Abs Auto 0.000 X10*3/uL (0.0-0.012); NRBC Pct Auto 0.0 /100WBC (0.0-0.2); Platelet Count 227 X10*3/uL (160-400); Red Blood Count 4.44 X10*6/uL (4.20-5.50); White Blood Count 5.9 X10*3/uL (4.8-10.8)
[2025-04-27 14:11] LABS: Alanine Aminotransferase 17 U/L (0-31); Albumin Level 4.3 g/dL (3.5-5.0); Alkaline Phosphatase 68 U/L (39-117); Anion Gap 10 (12-20); Aspartate Amino Transferase 24 U/L (5-31); Blood Urea Nitrogen 14 mg/dL (9-16); Calcium 8.8 mg/dL (8.4-10.2); Carbon Dioxide 28 mmol/L (22-29); Chloride 108 mmol/L (96-108); Cholesterol 206 mg/dL (<200); Estimated Glomerular Filt Rate > 60; HDL Cholesterol 70 mg/dL (>40); Potassium 4.0 mmol/L (3.3-5.1); Sodium 142 mmol/L (135-145); Total Protein 7.1 g/dL (6.5-8.0); Triglycerides 89 mg/dL (<150)
== END 2025-04-27 08:47 | disposition home or self-care (01) ==
LOC: HO.MANLDS 08:46
PROVIDERS: Visit Provider Internal Medicine
DX: Z00.00 Encounter for general adult medical examination without abnormal findings (principal); Z13.6 Encounter for screening for cardiovascular disorders
CPT/HCPCS: 36415; 80053; 80061; 85025

== ENCOUNTER 2025-04-29 13:20 | Outpatient (REF) | payer MEDICARE, SELFPAY ==
[2025-04-30 13:41] LABS: FIT Int Ctl YES; FIT Lot M01343; FIT1 NEGATIVE (NEGATIVE); FIT2 NEGATIVE (NEGATIVE)
--- OUTSIDE RECORDS SUMMARY | 2025-04-30 15:43 | XMS_ITS | Encounter Summary ---
Demographics
== END 2025-04-29 13:21 | disposition home or self-care (01) ==
LOC: HO.MANLNP 13:20
PROVIDERS: Visit Provider Internal Medicine
DX: Z12.11 Encounter for screening for malignant neoplasm of colon (principal)
CPT/HCPCS: 82274